=== PATIENT | female | born 1975 | race Two or more races ===

== ENCOUNTER 2024-07-11 18:39 | Emergency (ER) | payer MEDICAID, SELFPAY ==
[2024-07-11 18:56] VITALS: BP 161/91; RESP 20; TEMP 37.7; O2SAT 94
[2024-07-11 19:06] VITALS: PULSE 103
--- NOTE | 2024-07-11 19:08 | XR_ITS ---
Examination: PA lateral chest 2 views Technique: Upright PA lateral chest 2 views Exam date and time: July 11, 2024 1915 hrs. Indications: Shortness of breath coughing fever beginning 8 days ago. Findings: Mild prominence left ventricle Moderate vascular congestion Suspicious for early pneumonia at the right lung base The osseous structures are demineralized with advanced osteoarthritis glenohumeral joint Impression: Moderate vascular congestion Suspicious for early pneumonia right base
--- NOTE | 2024-07-11 19:09 | PD.EDRME ---
Rapid Medical Screening Exam RME Arrival date/time: 07/11/24 18:39 49-year-old female past medical history of diabetes, hypertension, and DVT presents emergency department complaining of headache, chest congestion, and productive yellow cough for 8 days. Patient reports at home recently sick with same symptoms as well. Chief Complaint: Flu Like Symptoms Time Seen by Provider: 07/11/24 18:49 Vital signs: Vital Signs Temperature 99.9 F 07/11/24 18:56 Respiratory Rate 20 07/11/24 18:56 Blood Pressure 161/91 H 07/11/24 18:56 Pulse Oximetry (%) 94 L 07/11/24 18:56 Oxygen Delivery Method Room Air 07/11/24 18:56 Vital signs reviewed by provider: Yes
[2024-07-11] MEDS: ONDANSETRON ODT 4 MG TABRAP PO (19:53)
[2024-07-11] MEDS: KETOROLAC INJ 60 MG/2 ML VIAL 30 MG IM (19:53)
[2024-07-11] MEDS: ACETAMINOPHEN 500 MG TABLET 1000 MG PO (19:53)
--- NOTE | 2024-07-11 20:25 | PD.EDURI ---
Upper Respiratory Inf. RME/HPI General Chief Complaint: Flu Like Symptoms Stated Complaint: FEVER, HEADACHE, COUGH Time Seen by Provider: 07/11/24 18:49 Source: patient Arrival date/time: 07/11/24 18:39 49-year-old female past medical history of diabetes, hypertension, and DVT presents emergency department complaining of headache, chest congestion, and productive yellow cough for 8 days. Patient reports at home recently sick with same symptoms as well. Patient denies any hemoptysis or chest pain. Mode of arrival: ambulatory Limitations: no limitations RME / HPI RME / HPI Narrative: 07/11/24 18:39 49-year-old female past medical history of diabetes, hypertension, and DVT presents emergency department complaining of headache, chest congestion, and productive yellow cough for 8 days. Patient reports at home recently sick with same symptoms as well. Related Data Home Medications ?Medication ?Instructions ?Recorded ?Confirmed acetaminophen 500 mg tablet 500 mg PO Q6H PRN Pain 10/30/23 10/30/23 losartan 50 mg tablet 50 mg PO QDAY 10/30/23 10/30/23 Previous Rx's ?Medication ?Instructions ?Recorded cephalexin 500 mg capsule 500 mg PO BID #10 caps 11/07/23 apixaban 5 mg (74 tabs) tablets in 5 mg PO BID #74 tabs 11/24/23 a dose pack ([employer] DVT-PE Treat 30D Start) levofloxacin 750 mg tablet 750 mg PO QDAY 5 days #5 tabs 07/11/24 Allergies Allergy/AdvReac Type Severity Reaction Status Date / Time No Known Allergies Allergy Verified 07/11/24 18:42 Review of Systems Review of Systems Systems Reviewed: All systems reviewed, normal except as documented Constitutional Constitutional: Reports system reviewed and no additional complaints, except as documented, Denies body ache(s), Denies chills, Denies fever(s) and Reports headache(s) Eyes Eyes: Reports system reviewed and no additional complaints, except as documented and Denies change in vision ENT Ears, Nose, Mouth, and Throat: Reports system reviewed and no additional complaints, except as documented, Denies disequilibrium, Denies dizziness, Reports headache(s), Denies sore throat and Denies vertigo Cardiovascular Cardiovascular: Reports system reviewed and no additional complaints, except as documented, Denies chest pain and Denies dyspnea Respiratory Respiratory: Reports system reviewed and no additional complaints, except as documented, Reports chest congestion, Reports cough and Denies dyspnea Gastrointestinal Gastrointestinal: Reports system reviewed and no additional complaints, except as documented, Denies abdominal pain, Denies nausea and Denies vomiting Musculoskeletal Musculoskeletal: Reports system reviewed and no additional complaints, except as documented, Denies abnormal gait and Denies arthralgias Integumentary/Breasts Skin/Breast: Reports system reviewed and no additional complaints, except as documented, Denies erythema, Denies rash and Denies wounds Neurologic Neurologic: Reports system reviewed and no additional complaints, except as documented, Denies abnormal gait, Denies disequilibrium, Denies dizziness, Reports headache(s) and Denies vertigo Past Medical History Past Medical History NEUROLOGIC: Positive Neurological Disorders and 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, left arm mild weakness); Negative Seizures CARDIAC: Positive Edema (left), Hypertension and Varicose Veins; Negative Cardiac Disorders or Congestive Heart Failure RESPIRATORY: Negative Chronic Obstructive Pulmonary Disease (COPD) or Asthma GASTROINTESTINAL: Positive Gastrointestinal Disorders, Gall Bladder Disease and Obesity GENITOURINARY: Positive Genitourinary Disorders, Renal Disease (kidney stones) and Kidney Stones REPRODUCTIVE: Positive Previous Pregnancies; Negative Pelvic Inflammatory Disease MUSCULOSKELETAL: Positive Musculoskeletal Disorders and Arthritis ENDOCRINE: Positive Endocrine Disorders and Diabetes Mellitus Type 2; Negative Diabetes Mellitus Type 1 HEMATOLOGIC: Positive Blood Disorders and Anemia; Negative Sickle Cell Disease OTHER HISTORY: Positive Hospitalization (CVA), Shingles, Falls and Chicken Pox; Negative Autoimmune Disease, Blood Transfusions, Blood Transfusion Reaction, Anesthesia Reactions, MRSA, Clostridium Difficile or Cancer Family History FAMILY HISTORY: Negative Family Psychiatric Problems, Family Respiratory Disorders, Family Cardiac Disorders, Family Gastrointestinal Problems, Family Cancer, Family Surgery or Family Anesthesia Reaction Surgical History SURGICAL: Positive Tubal Ligation and Section; Negative Cardiac Surgery, Endocrine Surgery, Ear Surgery, Abdominal Surgery, Nephrectomy, Joint Replacement, Neurologic Surgery, Mastectomy or Vasectomy Social History SMOKING STATUS: Never smoker SUBSTANCE USE: does not use ED Exam General Limitations: Present no limitations General appearance: Present alert and in no apparent distress Head Head exam: Present atraumatic Eye Eye exam: Present normal appearance, PERRL and EOMI ENT ENT exam: Present normal exam, normal oropharynx and mucous membranes moist Neck Neck exam: Present normal inspection, full ROM and trachea midline Chest Chest inspection: Present normal inspection and symmetric chest wall rise Respiratory Respiratory exam: Present normal lung sounds bilaterally Cardiovascular Cardiovascular exam: Present regular rate, normal rhythm and normal heart sounds Abdominal Exam Abdominal exam: Present soft and normal bowel sounds Extremities Exam Extremities exam: Present normal inspection and full ROM Back Exam Back exam: Present normal inspection and full ROM Neurological Exam Neurological exam: Present alert, oriented X3 and CN II-XII intact Psychiatric Psychiatric exam: Present normal affect and normal mood Skin Skin exam: Present warm, dry, intact and normal color Course Quality Measures none Orders Category Date Time Status Bedside Influenza A&B Antigen Test NOW Care 07/11/24 19:08 Completed XR chest 2V Stat Exams 07/11/24 19:08 Completed Acetaminophen Tab [Tylenol ES Tab] Med 07/11/24 19:08 Discontinued 1,000 mg PO X1 ONE Ketorolac Inj [Toradol Inj] Med 07/11/24 19:08 Discontinued 30 mg IM X1 ONE Ondansetron Odt [Zofran Odt] Med 07/11/24 19:48 Discontinued 4 mg PO X1 ONE cefTRIAXone [Rocephin] 1,000 mg Med 07/11/24 20:34 Discontinued Lidocaine 1% 20 ml [Xylocaine 1% 20 ML] 2.1 ml IM X1 Vital Signs Vital signs: Vital Signs Temperature 99.9 F 07/11/24 18:56 Respiratory Rate 20 07/11/24 18:56 Blood Pressure 161/91 H 07/11/24 18:56 Pulse Oximetry (%) 94 L 07/11/24 18:56 Oxygen Delivery Method Room Air 07/11/24 18:56 94% room air within normal limits. Upper Respiratory Infection MDM Narrative MDM Narrative:: 49-year-old female past medical history of diabetes, hypertension, and DVT presents emergency department complaining of headache, chest congestion, and productive yellow cough for 8 days. Patient reports at home recently sick with same symptoms as well. Patient denies any hemoptysis or chest pain. Patient influenza be positive. Chest x-ray findings suspicious right base pneumonia and patient's O2 saturation 94% with productive yellow sputum. Patient will be treated with antibiotics for bacterial pneumonia. Patient treated with fluoroquinolone monotherapy due to significant comorbidities. Patient appears nontoxic and is hemodynamically stable for discharge. Patient data External records reviewed:: [facility] previous records Clinical information provided by:: patient and family Social determinants that could affect healthcare access:: none Patient has the following chronic illnesses:: See chart How is presenting disease/condition affected by chronic disease/condition?: uneffected by Evaluation data The following diagnostics were reviewed and interpreted by me:: radiology exam(s) Lab and/or radiology exams considered but not ordered:: Ordered Interpretation Summary: Interpreted by me Medications / Prescriptions Medications or Prescriptions considered but not ordered:: Ordered Medication administrations:: Medication Administration History Discontinued Medications Acetaminophen (Acetaminophen 500 Mg Tablet) 1,000 mg PO X1 ONE Stop: 07/11/24 19:09 Last Admin: 07/11/24 19:53 Dose: 1,000 mg Documented By: FABIAN Ceftriaxone Sodium 1,000 mg/ (Lidocaine HCl 2.1 ml) 0 mg IM X1 ONE Stop: 07/11/24 20:35 Last Admin: 07/11/24 21:03 Dose: 1,000 mg Documented By: ARTURO Ketorolac Tromethamine (Ketorolac Inj 60 Mg/2 Ml Vial) 30 mg IM X1 ONE Stop: 07/11/24 19:09 Last Admin: 07/11/24 19:53 Dose: 30 mg Documented By: FABIAN Ondansetron HCl (Ondansetron Odt 4 Mg Tabrap) 4 mg PO X1 ONE; Protocol Stop: 07/11/24 19:49 Last Admin: 07/11/24 19:53 Dose: 4 mg Documented By: FABIAN Given Consultations Consultation(s) initiated? (list below): No Diagnosis Upper Respiratory Differential Diagnosis: upper respiratory infection, sinusitis, viral infection, bronchitis, influenza and pharyngitis Most likely diagnosis given after review of the tests above:: Influenza Pneumonia Admission Indicated Admission indicated?: not indicated Admission Request Was there a request for admission?: No Disposition Plan Disposition Plan: Discharge Discharge Attestation Discharge Attestation: The patient and all family members were given an opportunity to ask questions and understood the discharge instructions. Discharge instructions specifically effects, indications for sooner follow up or return to the emergency department, and the expected course of current diagnosis. Patient condition: Stable Discharge Plan Plan Patient Disposition: HOME (Self Care) Disposition Comment: Stable Prescriptions/Referrals Prescriptions/Med Rec: New levofloxacin 750 mg tablet 750 mg PO QDAY 5 Days Qty: 5 0RF No Action losartan 50 mg Tablet 50 mg PO QDAY acetaminophen 500 mg Tablet 500 mg PO Q6H PRN (Reason: Pain) cephalexin 500 mg capsule 500 mg PO BID Qty: 10 0RF Eliquis DVT-PE Treat 30D Start 5 mg (74 tabs) tablets,dose pack 5 mg PO BID Qty: 74 0RF Referrals: Raquel Coronel PA-C [Primary Care Provider] - In 1 week Problem List Clinical Impression: Pneumonia, Influenza Patient/Caregiver Discharge Instructions Discharge Activity: activity as tolerated Education Materials: Treating Pneumonia, ED Influenza (Adult) Additional Instructions: Drink plenty of fluids and get plenty of rest. Take [id number] Tylenol or ibuprofen as needed for fever or pain. Take antibiotics as prescribed. Follow-up with primary care provider in 2 to 3 days. Return to the emergency department for any worsening symptoms or as needed. Print Language: Ukrainian Stand Alone Forms: Maile Award Info., Patient Portal Info Letter DIANA/FABIO Supervising Physician ARIADNA Supervising Physician: Dr. Flower
[2024-07-11] MEDS: cefTRIAXone 1,000 MG, LIDOCAINE 1% 20 ML 2.1 ML IM (21:03)
[2024-07-11 21:06] VITALS: BP 143/98; PULSE 113; RESP 20; TEMP 38.1; O2SAT 94
[2024-07-11 21:10] VITALS: TEMP 38.1
[2024-07-11 21:11] VITALS: TEMP 38.1
== END 2024-07-11 21:17 | disposition home or self-care (01) ==
PROVIDERS: Emergency Provider Emergency Medicine; PCP Specialist
DX: J11.00 Influenza due to unidentified influenza virus with unspecified type of pneumonia (principal); I10 Essential (primary) hypertension; E11.9 Type 2 diabetes mellitus without complications; Z86.718 Personal history of other venous thrombosis and embolism
CPT/HCPCS: 71046; 87400; 96372; 99283; J0696; J1885; J3490; Q0162; A9270

== ENCOUNTER 2024-07-12 04:42 | Emergency (ER) | payer MEDICAID, SELFPAY ==
[2024-07-12 04:43] VITALS: BP 171/117; PULSE 90; RESP 16; TEMP 38.1; O2SAT 95
[2024-07-12 04:48] VITALS: PULSE 96; RESP 18; O2SAT 96; BMI 33.3
--- NOTE | 2024-07-12 05:20 | PD.EDRME ---
Rapid Medical Screening Exam RME Arrival date/time: 07/12/24 04:42 49-year-old female past medical history of diabetes, hypertension and DVT presents emergency department complaining of increased weakness, shortness of breath, and nausea. Patient reports was seen yesterday diagnosed with pneumonia and influenza. Chief Complaint: General Adult/Misc Complain Vital signs: Vital Signs Temperature 100.6 F H 07/12/24 04:43 Pulse Rate 90 07/12/24 04:43 Respiratory Rate 16 07/12/24 04:43 Blood Pressure 171/117 H 07/12/24 04:43 Pulse Oximetry (%) 95 07/12/24 04:43 Oxygen Delivery Method Room Air 07/12/24 04:43 Vital signs reviewed by provider: Yes
[2024-07-12 05:33] VITALS: TEMP 38.1
[2024-07-12] MEDS: ACETAMINOPHEN 500 MG TABLET 1000 MG PO (05:33)
[2024-07-12] MEDS: ONDANSETRON ODT 4 MG TABRAP PO (05:33)
--- NOTE | 2024-07-12 05:49 | EKG_ITS ---
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: : 1975 Requested By: Jorge A Back ([facility]) Order Number: [id number] Reading MD: Jorge A Back ([facility]) Measurements Intervals [place] Rate: 103 P: 23 [place]: 120 QRS: 11 QRSD: 94 T: 30 QT: 332 QTc: 435 Interpretive Statements SINUS TACHYCARDIA NONSPECIFIC ST & T-WAVE ABNORMALITY ABNORMAL RHYTHM ECG Compared to ECG 11/04/2023 07:40:59 T-wave abnormality now present Sinus rhythm no longer present Left ventricular hypertrophy no longer present ST (T wave) deviation no longer present /store/S0/[id number]/ecg/[id number].pdf
[2024-07-12 06:19] LABS: Collection Type, Urine Clean Catch
[2024-07-12 06:28] LABS: Bilirubin,Urine Negative (Negative); Blood,Urine Trace (Negative); Clarity,Urine Clear (Clear/Hazy); Color,Urine Yellow (Lt Yel-Yel); Glucose, Urine 4+ (Negative); Ketones,Urine 1+ (Negative); Leukocyte Esterase,Urine Positive (Negative); Nitrite,Urine Negative (Negative); PH,Urine 6.5 (5.0-7.0); Protein,Urine 1+ (Neg - Trace); RBC,Urine 20 /hpf (0-3); Specific Gravity,Urine 1.025 (1.001-1.035); Squamous Epithelial Cell,Urine 2 /hpf (0-5); Urobilinogen,Urine Negative mg/dL (0.0-1.0); WBC,Urine 138 /hpf (0-5)
[2024-07-12 06:29] LABS: Culture Indicated,Urine Yes
[2024-07-12 06:57] LABS: Basophils % (Auto) 0 % (0-2.5); Eosinophils % (Auto) 1 % (0-10); Hematocrit 41.8 % (36.0-46.0); Hemoglobin 13.6 g/dL (12.0-16.0); Immature Granulocytes % (Auto) 0 % (0-0); Lymphocytes # (Auto) 0.8 Thou/mm3 (1.0-4.8); Lymphocytes % (Auto) 25 % (10-50); Mean Corpuscular HGB Conc 32.5 g/dl (31.0-37.0); Mean Corpuscular Hemoglobin 28.5 pg (25.0-35.0); Mean Corpuscular Volume 88 fL (80-100); Monocytes # (Auto) 0.3 Thou/mm3 (0.0-0.8); Monocytes % (Auto) 10 % (0-12); Neutrophils % (Auto) 64 % (37-80); Nucleated Red Blood Cell % 0 /100 WBC (0); Platelet Count 153 Thou/mm3 (140-440); RDW Standard Deviation 42.7 fL (36.4-46.3); Red Blood Count 4.77 Miln/mm3 (4.00-5.20); White Blood Count 3.2 Thou/mm3 (3.6-11.0)
[2024-07-12 07:06] LABS: B-Type Natriuretic Peptide < 20 pg/mL (0-100)
[2024-07-12 07:08] LABS: Alanine Aminotransferase 72 U/L (10-49); Anion Gap 7 (7-16); Aspartate Amino Transferase 47 U/L (0-34); BUN/Creatinine Ratio 14 Ratio (12-20); Bilirubin,Total 0.2 mg/dL (0.3-1.2); Blood Urea Nitrogen 11 mg/dL (9-23); Calcium 8.9 mg/dL (8.3-10.6); Carbon Dioxide 25.1 mMol/L (20.0-31.0); Chloride 101 mMol/L (98-107); Creatinine (Component) 0.8 mg/dL (0.6-1.3); Estimated Creatinine Clearance 92.6 mL/min (>60); Glucose 287 mg/dL (74-106); Osmolality,Calculated 275 (275-295); Potassium 3.6 mMol/L (3.4-5.1); Sodium 133 mMol/L (136-145); eGFR > 60 See Note
[2024-07-12 07:09] LABS: Albumin, Serum 4.1 gm/dL (3.5-5.0); Albumin/Globulin Ratio 1.3 (1.2-2.2); Alkaline Phosphatase 102 U/L (46-116); Calcium (Corrected) 8.9 mg/dL (8.5-10.1); Globulin 3.1 gm/dL (2.3-3.5); Total Protein 7.2 gm/dL (5.7-8.2); Troponin I < 0.020 ng/mL (0.0-0.045)
[2024-07-12 07:59] VITALS: BP 134/77; PULSE 93; RESP 17; TEMP 37.7; O2SAT 95
--- NOTE | 2024-07-12 08:07 | EDNOTE_ITS ---
ED Weakness RME/HPI General Chief complaint: General Adult/Misc Complain Stated complaint: WEAKNESS Time Seen by Provider: 07/12/24 08:00 Arrival date/time: 07/12/24 04:42 RME / HPI RME / HPI Narrative: 07/12/24 04:42 49-year-old female past medical history of diabetes, hypertension and DVT presents emergency department complaining of increased weakness, shortness of breath, and nausea. Patient reports was seen yesterday diagnosed with pneumonia and influenza. DR. FLORES MAIN ED EVALUATION 49 year old female with history of hypertension, diabetes, and DVT presents to the ED for evaluation of cough and shortness of breath beginning 8 days ago and worsening last night. Patient additionally reports headache, generalized weakness, nausea, and abdominal pain. States abdominal pain is located mostly to the left lower quadrant, without radiation, rating as mild-moderate. Patient reports she was evaluated here yesterday and diagnosed with pneumonia and influenza. States she was given antibiotics in the ED and sent home with a prescription for Levaquin. Denies any sweats, chest pain, vomiting, diarrhea, or dysuria. Related Data Home Medications ?Medication ?Instructions ?Recorded ?Confirmed acetaminophen 500 mg tablet 500 mg PO Q6H PRN Pain 10/30/23 10/30/23 losartan 50 mg tablet 50 mg PO QDAY 10/30/23 10/30/23 Previous Rx's ?Medication ?Instructions ?Recorded cephalexin 500 mg capsule 500 mg PO BID #10 caps 11/07/23 apixaban 5 mg (74 tabs) tablets in 5 mg PO BID #74 tabs 11/24/23 a dose pack ([employer] DVT-PE Treat 30D Start) levofloxacin 750 mg tablet 750 mg PO QDAY 5 days #5 tabs 07/11/24 oseltamivir 75 mg capsule (Tamiflu) 75 mg PO BID 5 days #10 caps 07/12/24 Allergies Allergy/AdvReac Type Severity Reaction Status Date / Time No Known Allergies Allergy Verified 07/11/24 18:42 Review of Systems Review of Systems Narrative Review of Systems: GEN: +fever, no chills, no weight loss, +generalized weakness EYES: No discharge, no visual changes, no pain HEENT: No ear pain, no congestion, no sore throat PULM: +shortness of breath, +cough, no congestion CV: No chest pain, no palpitations GI: + nausea, no vomiting, no diarrhea,+ pain, no constipation : No frequency, no urgency and no dysuria MUSC/SKEL No joint pain, no back pain SKIN: No rash NEURO: +headache Past Medical History Past Medical History NEUROLOGIC: Positive Neurological Disorders and 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, left arm mild weakness) CARDIAC: Positive Edema (left), Hypertension and Varicose Veins GASTROINTESTINAL: Positive Gastrointestinal Disorders, Gall Bladder Disease and Obesity GENITOURINARY: Positive Genitourinary Disorders, Renal Disease (kidney stones) and Kidney Stones REPRODUCTIVE: Positive Previous Pregnancies MUSCULOSKELETAL: Positive Musculoskeletal Disorders and Arthritis ENDOCRINE: Positive Diabetes Mellitus Type 2 HEMATOLOGIC: Positive Blood Disorders and Anemia OTHER HISTORY: Positive Hospitalization (CVA), Shingles, Falls and Chicken Pox Surgical History SURGICAL: Positive Tubal Ligation and Section Social History SMOKING STATUS: Never smoker SUBSTANCE USE: does not use ED Exam Narrative Physical exam: GENERAL APPEARANCE: Well hydrated, well nourished, in no acute distress. VITALS: All vitals were reviewed and the pulse ox is 95% on room air which is normal according to my interpretation. HEENT: Normocephalic, atramatic, EOMI, EACs are patent. There is no bulge or retraction. Throat without erythema or exudate. Moist oromucosa. No jaundice NECK: Supple, no JVD or bruits. CARDIOVASCULAR: Heart regular without S3-S4 or murmur. No rubs or gallops. LUNGS/CHEST: Clear to auscultation bilaterally. No rales, rhonchi, or wheezing. Normal inspection. ABDOMEN: Soft, minimal discomfort left lower abdomen, with normal bowel sounds. No pulsatile masses. No rebound, rigidity, or guarding. No incarcerated hernia. EXTREMITIES: Normal inspection and palpation. No edema, clubbing, or cyanosis. Intact CSM SKIN: Warm and dry without rashes. Normal inspection. MUSCULOSKELETAL: Normal inspection. No gross deformity, full ROM all extremities NEURO: Alert and oriented x3. Cranial nerves II through XII grossly intact. There are no other motor or sensory deficits noted. PSYCHIATRIC: Normal mood and affect. No psychosis. Course Quality Measures none Orders Category Date Time Status EKG (ED ONLY) *Do not use* NOW Care 07/12/24 05:49 Completed EKG (ED Only) Stat Exams 07/12/24 05:49 Draft BNP [B-Type Natriuretic Peptide] Stat Lab 07/12/24 06:35 Completed CBC Stat Lab 07/12/24 06:35 Completed CMP [Comprehensive Metabolic Panel] Stat Lab 07/12/24 06:35 Completed Troponin I Stat Lab 07/12/24 06:35 Completed Urinalysis, C/S if Indicated Stat Lab 07/12/24 06:06 Completed Urine Culture Stat Lab 07/12/24 06:06 Received Acetaminophen Tab [Tylenol ES Tab] Med 07/12/24 05:20 Discontinued 1,000 mg PO X1 ONE Ondansetron Odt [Zofran Odt] Med 07/12/24 05:20 Discontinued 4 mg PO X1 ONE Vital Signs Vital signs: Vital Signs Temperature 100.6 F H 07/12/24 04:43 Pulse Rate 90 07/12/24 04:43 Respiratory Rate 16 07/12/24 04:43 Blood Pressure 171/117 H 07/12/24 04:43 Pulse Oximetry (%) 95 07/12/24 04:43 Oxygen Delivery Method Room Air 07/12/24 04:43 Weakness MDM Narrative MDM Narrative:: Jillian Coto am scribing for and in the presence of Dr. Flores. 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 She was sent home with a prescription for Levaquin. Return here today for same complaint which is coughing and shortness of breath for the last 8 days. Low-grade temperature 99.8. HEENT is unremarkable. Lungs are clear. Heart is normal. Abdomen is benign. Extremities are normal. No peripheral edema. Neuroexam is normal. No deficit. Originally she was seen sitting on the wheelchair in the waiting area. But it was able to have her walk from the wheelchair to room number RME 4 and lay down on the gurney. She does up without any assistance. O2 saturation maintained well in room air which is 95% which is normal. White blood cell count of 3000 which is consistent with viral infection. Blood sugar is 287 but no sign of DKA. She relates that she does take medication for diabetes but she does not know the name of the pill. Troponin is negative. BNP is negative. Chest x-ray was done yesterday showing questionable right lower lobe pneumonia. Urine analysis is positive for ketone and positive for UTI as well. Twelve-lead EKG at 6 0 9 AM interpreted by me: Normal sinus rhythm with a heart rate of 103. Normal axis. No ST elevation or depression. No PVC. No STEMI. Regular rate and rhythm. Patient has no acute respiratory distress. She has no neurological deficit. Will put her on Tamiflu for the influenza B. It is unknown how long she has been having this flu. But is worthwhile to try it. Because she is already on Levaquin, UTI does not need any further coverage. She is instructed to follow- up with PMD in the next few days for recheck and further care. She is advised to return to emergency department if condition worsens or if new symptoms develop. Patient data External records reviewed:: [facility] previous records (I reviewed ED visit from yesterday 07/12/2024) and EMS form Clinical information provided by:: patient and family (daughter- adds to hpi) Social determinants that could affect healthcare access:: none Patient has the following chronic illnesses:: htn, dm How is presenting disease/condition affected by chronic disease/condition?: exacerbated by Evaluation data The following diagnostics were reviewed and interpreted by me:: lab results and EKG tracing(s) Lab and/or radiology exams considered but not ordered:: None Interpretation Summary: as noted above Medications / Prescriptions Medications or Prescriptions considered but not ordered:: None Medication administrations:: Medication Administration History Discontinued Medications Acetaminophen (Acetaminophen 500 Mg Tablet) 1,000 mg PO X1 ONE Stop: 07/12/24 05:21 Last Admin: 07/12/24 05:33 Dose: 1,000 mg Documented By: ARTURO Ondansetron HCl (Ondansetron Odt 4 Mg Tabrap) 4 mg PO X1 ONE; Protocol Stop: 07/12/24 05:21 Last Admin: 07/12/24 05:33 Dose: 4 mg Documented By: ARTURO See above Consultations Consultation(s) initiated? (list below): No Diagnosis Weakness Differential Diagnosis: anemia, hypoglycemia, sepsis, dehydration and other (pneumonia, viral illness, influenza, UTI ) Most likely diagnosis given after review of the tests above:: Pneumonia Hyperglycemia Diabetes Admission Indicated Admission indicated?: not indicated Admission Request Was there a request for admission?: No Disposition Plan Disposition Plan: Discharge Discharge Attestation Discharge Attestation: The patient and all family members were given an opportunity to ask questions and understood the discharge instructions. Discharge instructions specifically effects, indications for sooner follow up or return to the emergency department, and the expected course of current diagnosis. Patient condition: Stable Discharge Plan Plan Patient Disposition: HOME (Self Care) Disposition Comment: Stable for DC Prescriptions/Referrals Prescriptions/Med Rec: New oseltamivir [Tamiflu] 75 mg capsule 75 mg PO BID 5 Days Qty: 10 0RF No Action losartan 50 mg Tablet 50 mg PO QDAY acetaminophen 500 mg Tablet 500 mg PO Q6H PRN (Reason: Pain) cephalexin 500 mg capsule 500 mg PO BID Qty: 10 0RF Eliquis DVT-PE Treat 30D Start 5 mg (74 tabs) tablets,dose pack 5 mg PO BID Qty: 74 0RF levofloxacin 750 mg tablet 750 mg PO QDAY 5 Days Qty: 5 0RF Referrals: Raquel Coronel PA-C [Primary Care Provider] - In 1 week Problem List Clinical Impression: Urinary tract infectious disease, Diabetes mellitus with hyperglycemia, Influenza Patient/Caregiver Discharge Instructions Education Materials: ED Diabetes with High Blood Sugar, ED Influenza (Adult), ED CYSTITIS Female Adult Additional Instructions: Tylenol and or ibuprofen as needed for fever and neck. Rest. Drink plenty of liquid. You should increase the dose 6 of the diabetic pill because the blood sugar is still high even though you are not eating much. Continue Levaquin for bladder infection. And take Tamiflu for influenza B. Follow-up with your medical doctor in 3 days. Return to the emergency department if condition worsens or if new symptoms develop. Print Language: Italian Stand Alone Forms: Maile Award Info., Patient Portal Info Letter
== END 2024-07-12 09:18 | disposition home or self-care (01) ==
PROVIDERS: Emergency Provider Emergency Medicine; PCP Specialist
DX: J11.1 Influenza due to unidentified influenza virus with other respiratory manifestations (principal); E11.65 Type 2 diabetes mellitus with hyperglycemia; N30.90 Cystitis, unspecified without hematuria; I10 Essential (primary) hypertension
CPT/HCPCS: 36415; 80053; 81001; 83880; 84484; 85025; 87086; 93005; 99283; Q0162; A9270